=== PATIENT | male | born 1965 | race Caucasian/White ===

== ENCOUNTER 2025-06-19 09:46 | Emergency (ER) | payer OTHER ==
[~2025-06-19] VITALS: Ht 172.7 cm; Wt 85.7 kg
[2025-06-19 10:14] LABS: PLATELET COUNT (AUTO) 157 K/uL (150-450); RED BLOOD CELL COUNT(AUTO) 4.64 MIL/uL (4.5-6.0); RED CELL DISTRIBUTION WIDTH 14.5 % (11.5-15.0); WHITE BLOOD COUNT (AUTO) 9.7 K/uL (4.3-11.0)
[2025-06-19] MEDS: IV NS 0.9% 1,000 ML BAG IV ONE (10:30)
[2025-06-19 10:34] LABS: ASPARTATE AMINOTRANSFERASE 11 U/L (15-37); CALCIUM, SERUM 8.3 mg/dL (8.5-10.1); CREATININE 0.7 mg/dL (0.6-1.3); NT-PRO BNP 182 pg/mL (0-125); SODIUM SERUM 141 mmol/L (136-145); TOTAL PROTEIN, SERUM 7.4 g/dL (6.4-8.2); UREA NITROGEN, BLOOD 13 mg/dL (7-18)
[2025-06-19] MEDS: ACETAMINOPHEN ES 500 MG TABLET PO ONE (10:59)
[2025-06-19] MEDS ORDERED: ACETAMINOPHEN ES 500 MG TABLET ONE (11:02)
[2025-06-19] MEDS ORDERED: IOHEXOL-350 100 ML VIAL IV ONE (11:26)
[2025-06-19] MEDS ORDERED: IV NS 0.9% 250 ML IV ONE (11:27)
[2025-06-19 12:00] VITALS: BP 125/81; TEMP 99.2; O2SAT 98
[2025-06-19] MEDS ORDERED: ALBU18HF2 INH (12:55)
== END 2025-06-19 14:49 | disposition left against medical advice (07) ==
LOC: ER 09:56
DX: R06.02 Shortness of breath (principal); R19.7 Diarrhea, unspecified; I11.9 Hypertensive heart disease without heart failure; E11.9 Type 2 diabetes mellitus without complications; E78.5 Hyperlipidemia, unspecified; Z20.822 Contact with and (suspected) exposure to COVID-19
CPT/HCPCS: 99285; 96360; 71275; 71045; 87426; 93005; 87804 ×2; 85025; 80048; 80076; 36415; 84484; 83880; J7030; J7050; Q9967